=== PATIENT | female | born 1955 | race Caucasian/White ===

== ENCOUNTER 2020-05-27 08:57 | Emergency (ER) | payer MEDICARE, BC ==
[~2020-05-27] VITALS: Ht 172.7 cm; Wt 75.0 kg
[2020-05-27 09:26] VITALS: BP 162/73
--- NOTE | 2020-05-27 10:33 | NUR ---
Breaking primary RN, pt is in sitting on [email or web address] side of the bed, no needs at this time
== END 2020-05-27 11:17 | disposition home or self-care (01) ==
LOC: ER 08:58
DX: S72.001D Fracture of unspecified part of neck of right femur, subsequent encounter for closed fracture with routine healing (principal); E78.00 Pure hypercholesterolemia, unspecified; I10 Essential (primary) hypertension; E11.9 Type 2 diabetes mellitus without complications; Z88.0 Allergy status to penicillin; W10.8XXD Fall (on) (from) other stairs and steps, subsequent encounter
CPT/HCPCS: 73502; 99284